=== PATIENT | male | born 1940 | race Caucasian/White ===

== ENCOUNTER 2017-03-25 21:29 | Inpatient (IN) | payer MEDICARE ==
[~2017-03-25] VITALS: Ht 177.8 cm; Wt 86.4 kg
--- NOTE | ~2017-03-25 | HEMODYNAMI ---
PATIENT:IRMA RAMIRES MEDICAL RECORD: [id number] : 44 LOCATION:[id number] ADMISSION DATE: 03/26/17 Generatedon:03/26/201713:36 Patient name: IRMA RAMIRES Patient #: [id number] SSN: [id number] : 1940 Date of study: 03/26/2017 Page: Of Hemodynamic Procedure Report Patient Data Patient Demographics Procedure consent was obtained First Name: IRMA Gender: Male Last Name: KEYLA : 1940 Middle Initial: W Age: 77 year(s) Patient #: [id number] Race: Unknown SSN: [id number] Additional ID: [id number] Contact details Address: [address] [place] [address] [address] State: [place] City: [facility] Zip code: [address] Past Medical History Allergies: No known allergies Admission Admission Data Admission Date: 03/26/2017 Admission Time: 0:05 Arrival Date: 03/26/2017 Arrival Time: 0:00 Admit Source: Other Room #: D.2234 Height (in.): 64.96 BSA: 1.89 (m2) Height (cm.): 165 BMI: 29.99 (kg/m2) Weight (lbs.): 180.01 Weight (kg.): 81.65 Lab Results Lab Result Date: 03/26/2017 Lab Result Time: 0:00 Biochemistry Name Units Result Min Max BUN mg/dl 20 --(----)*- 7 18 CK-MB ng/ml 4.4 --(----)*- 0 3.6 Creatinine mg/dl 0.9 --(-*--)-- 0.6 1.3 Creatinine l 272 --(----)-* 21 215 Kinase Troponin l ng/ml 0.03 --(-*--)-- 0 0.06 CBC Name Units Result Min Max Hemoglobin g/dl 12.8 -*(----)-- 13.5 17.5 Procedure Procedure Types Cath Procedure Diagnostic Procedure [facility] w/Coronaries PCI Procedure Coronary Stent Initial Miscellaneous Procedures Moderate Sedation up to 15 minutes Procedure Description Procedure Date Procedure Date: 03/26/2017 Procedure Start Time: 12:56 Procedure End Time: 13:30 Procedure Staff Name Function Yasir Abraham MD Performing Physician Patience Villa RT Scrub Carla Ace RN Nurse Christy Fisher RT Monitor Procedure Data Cath Procedure Fluoroscopy Diagnostic fluoroscopy Total fluoroscopy Time: time: 12.8 min 12.8 min Diagnostic fluoroscopy Total fluoroscopy dose: dose: 1258 mGy 1258 mGy Contrast Material Contrast Material Type Amount (ml) Isovue 300 163 Entry Location Entry Primary Successful Side Size Upsize Upsize Entry Closure Eng ccessful Closure Location (Fr) 1 (Fr) 2 (Fr) Remarks Device Remarks Radial Right 6 Fr Mechanical TR band artery Short Compression Femoral Right 7 Fr Exoseal artery Short Estimated blood loss: 10 ml Diagnostic catheters Device Type Used For End Catheter Placement Terumo 5Fr Campton 110cm Procedure catheter Procedure Complications No complications Procedure Medications Medication Administration Route Dosage Oxygen NC 2 l/min Lidocaine 2% added to field 20 Heparin Flush Bag added to field 2 bags (1000units/500ml NS) 0.9% NaCl I.V. 100 ml/hr Zofran I.V. 4 mg Versed I.V. 1 mg Fentanyl I.V. 50 mcg Versed I.V. 1 mg Fentanyl I.V. 50 mcg Radial Cocktail I.A. 1 syringe (Verapomil 2mg/Nitro 400mcg/Heparin 1500units) Heparin Bolus I.V. 4000 units Integrilin (Bolus I.V. 7.9 ml 2mg/ml) Fentanyl I.V. 50 mcg Versed I.V. 1 mg Fentanyl I.V. 50 mcg Versed I.V. 1 mg Plavix P.O. 600 mg Hemodynamics Rest BSA: 1.89 (m2) HGB: 12.8 (g/dl) O2 Consumption: Estimated: 220.91 (ml/min) O2 Co nsumption indexed: Estimated:116.88 (ml/min/m) Heart Rate: 75 (bpm) Snapshots Pre Cath Intra NCS Post Cath Vital Signs Time Heart Resp SPO2 etCO2 GW1rsds NIBP (mmHg) Rhythm Pain Sedation Rate (ipm) (%) (mmHg) (mmHg) Status Level (bpm) 12:37:39 75 17 96 0 0 157/77(126) NSR 0 (11) 10(A) , No pain 12:41:59 70 16 99 0 0 150/71(113) NSR 0 (11) 10(A) , No pain 12:46:24 66 14 96 0 0 133/62(99) NSR 0 (11) 10(A) , No pain 12:50:44 64 18 96 0 0 133/58(95) NSR 0 (11) 10(A) , No pain 12:55:00 63 19 97 0 0 126/62(92) NSR 0 (11) 9(A) , No pain 12:59:24 66 17 98 0 0 98/47(71) NSR 0 (11) 9(A) , No pain 13:03:34 62 18 95 0 0 116/53(82) NSR 0 (11) 9(A) , No pain 13:07:50 66 16 97 0 0 117/61(89) NSR 0 (11) 9(A) , No pain 13:12:08 60 16 94 0 0 120/58(91) NSR 0 (11) 9(A) , No pain 13:16:22 61 14 94 0 0 115/58(86) NSR 0 (11) 9(A) , No pain 13:20:38 59 16 95 0 0 119/55(95) NSR 0 (11) 9(A) , No pain 13:24:54 58 18 94 0 0 112/58(94) NSR 0 (11) 9(A) , No pain 13:29:08 62 18 95 0 0 124/60(93) NSR 0 (11) 10(A) , No pain Medications Time Medication Route Dose Verified Delivered Reason Note s Effectiveness by by 12:37:15 Oxygen NC 2 l/min Yasir Aguirre used for Leigh Ace director business integration 12:37:22 Lidocaine 2% added 20ml Yasir Cooley for local to vial Leigh Abraham MD anesthetic field 12:37:35 Heparin Flush added 2 bags Yasir Cooley used for Bag to Leigh Abraham MD procedure (1000units/500ml field NS) 12:37:44 0.9% NaCl I.V. 100 Yasir Buffie Per physician ml/hr Leigh Ace RN 12:37:48 Zofran I.V. 4 mg Yasirradha Cohnie Per physician pt h as n\v Leigh Ace RN side effect with sedation mediciations 12:48:48 Versed I.V. 1 mg Yasir Buffie for sedation Leigh Ace RN 12:48:54 Fentanyl I.V. 50 mcg Yasir Aguirre for sedation Leigh Ace RN 12:55:34 Versed I.V. 1 mg Yasir Buffie for sedation Leigh Ace RN 12:55:42 Fentanyl I.V. 50 mcg Yasirradha Cohnie for sedation Leigh Ace RN 12:58:04 Radial Cocktail I.A. 1 Yasir Yasir for (Verapomil syringe Leigh Abraham MD vasodilation 2mg/Nitro 400mcg/Heparin 1500units) 13:02:45 Heparin Bolus I.V. 4000 Yasir Aguirre for veri fied units Leigh Ace RN anticoagulation with dr abraham 13:04:46 Integrilin I.V. 7.9 ml Yasir Cohnie for wast ed 2.7 (Bolus 2mg/ml) Leigh Ace RN antiplatelet ml of vial therapy 13:07:06 Fentanyl I.V. 50 mcg Yasir Cohnie for sedation Leigh Ace RN 13:07:42 Versed I.V. 1 mg Yasir Buffie for sedation Leigh Ace RN 13:17:29 Versed I.V. 1 mg Yasir Cohnie for sedation Leigh Ace RN 13:17:35 Fentanyl I.V. 50 mcg Yasir Cohnie for sedation Leigh Ace RN 13:29:15 Plavix P.O. 600 mg Yasir Aguirre for Leigh Ace RN antiplatelet therapy Procedure Log Time Note 12:25:01 Lab Result : BUN 20 mg/dl 12:25:01 Lab Result : Troponin l 0.03 ng/ml 12:25:01 Lab Result : Hemoglobin 12.8 g/dl 12:25:01 Lab Result : Creatinine Kinase 272 l 12:25:01 Lab Result : Creatinine 0.9 mg/dl 12:25:01 Lab Result : CK-MB 4.4 ng/ml 12:25:26 Diagnostic Cath Status : Elective 12:29:27 Carla Ace RN sent for patient. Start room use. 12:29:34 Time tracking: Regular hours 12:29:40 Plan of Care:Hemodynamics will remain stable., Cardiac rhythm will remain stable., Comfort level will be maintained., Respiratory function will remain adequate., Patient/ family verbilizes understanding of procedure., Procedure tolerated without complication., Recovers from procedure without complications.. 12:30:14 Patient received from Med II to CCL 1 Alert and oriented. Tansferred to table in Supine position. 12:30:18 Warm blankets applied, and sandra hugger turned on for patient comfort. 12:30:19 Correct patient and procedure confirmed by team. 12:30:21 Signed procedure consent form obtained from patient. 12:31:07 Patient Weight : 180.01 kg 12:31:18 Patient Height : 64.96 cm 12:31:28 Arrival Date: 03/26/2017 12:00:00 AM 12:31:30 Admit Source: Other 12:31:54 H&P Date Dictated: 03/25/2017 Within 30 days and on chart.. 12:31:58 Pre-procedure instructions explained to patient. 12:32:00 Family in waiting room. 12:32:09 Patient NPO since Midnight. 12:32:26 Patient allergic to No known allergies 12:32:34 Was the patient premedicated? No 12:32:41 Is patient on blood thinner?No 12:32:43 Patient diabetic? No. 12:32:50 Previous problem with sedation/anesthesia? Yes n/v 12:32:54 Snore? Yes 12:32:56 Sleep apnea? No 12:33:03 Dentures? No ? 12:33:19 Patient pain scale 0/10 ?. 12:33:35 IV patent on arrival in left antecubital with 0.9% NaCl at KVO. 12:33:53 Lab results completed and on chart. 12:34:35 Right Radial & Right Groin area was prepped with chlora-prep and draped in sterile fashion 12:34:37 Alarms reviewed by R. N. 12:34:37 Sharps counted by scrub and verified by R.N. 12:35:15 ECG and BP/O2 sat monitors applied to patient. 12:36:26 Baseline sample Acquired. 12:36:26 Vital chart was started 12:36:34 Rhythm: sinus rhythm 12:36:36 Full Disclosure recording started 12:37:15 Oxygen 2 l/min NC was administered by Carla Ace RN; used for procedure; 12:37:22 Lidocaine 2% 20ml vial added to field was administered by Yasir Abraham MD; for local anesthetic; 12:37:35 Heparin Flush Bag (1000units/500ml NS) 2 bags added to field was administered by Yasir Abraham MD; used for procedure; 12:37:44 0.9% NaCl 100 ml/hr I.V. was administered by Carla Ace RN; Per physician; 12:37:48 Zofran 4 mg I.V. was administered by Carla Ace RN; Per physician; pt has n\v side effect with sedation mediciations 12:47:11 Physician arrived 12:47:12 --------ALL STOP TIME OUT------ 12:47:12 Final Timeout: patient, procedure, and site verified with staff and physician. All members of the team are in agreement. 12:47:15 Right Radial & Right Groin site verified by team. 12:47:20 Sedation plan: IV Moderate Sedation Versed, Fentanyl 12:48:48 Versed 1 mg I.V. was administered by Carla Ace RN; for sedation; 12:48:54 Fentanyl 50 mcg I.V. was administered by Carla Ace RN; for sedation; 12:54:15 Zero performed for pressure channel P1 12:55:34 Versed 1 mg I.V. was administered by Carla Ace RN; for sedation; 12:55:42 Fentanyl 50 mcg I.V. was administered by Carla Ace RN; for sedation; 12:56:09 Procedure started. 12:56:16 Local anesthetic to right radial artery with Lidocaine 2% by Yasir Abraham MD.INITIAL ACCESS ONLY 12:57:16 A 6 Fr Short sheath was inserted into the Right Radial artery 12:57:22 J wire advanced. 12:58:04 Radial Cocktail (Verapomil 2mg/Nitro 400mcg/Heparin 1500units) 1 syringe I.A. was administered by Yasir Abraham MD; for vasodilation; 12:58:25 A Terumo 5Fr Campton 110cm catheter was advanced over the wire and used for Procedure. 12:58:30 LV angiography performed. 12:59:22 EF : 55 % 12:59:28 LCA angiography performed. 13:00:30 RCA angiography performed. 13:00:50 Catheter removed. 13:02:45 Heparin Bolus 4000 units I.V. was administered by Carla Ace RN; for anticoagulation; verified with dr abraham 13:03:43 [employer] BasixCompak Inflation Kit opened to sterile field. 13:03:44 Sim Fielder XT J 300cm 0.014 guide wire opened to sterile field. 13:03:45 Medtronic Launcher 6Fr AR 2.0 guide catheter opened to sterile field. 13:03:58 ACC PCI Site: mRCA has 99% stenosis. 13:04:05 6 Fr AR2 guide catheter was inserted over the wire 13:04:13 Jaspal wire advanced. 13:04:46 Integrilin (Bolus 2mg/ml) 7.9 ml I.V. was administered by Carla Ace RN; for antiplatelet therapy; wasted 2.7 ml of vial 13:07:02 Medtronic Launcher 7Fr AR 2.0 SH guide catheter opened to sterile field. 13:07:03 Terumo 7Fr Massillon Sheath opened to sterile field. 13:07:06 Fentanyl 50 mcg I.V. was administered by Carla Aec RN; for sedation; 13:07:16 Local anesthetic to right femoral artery with Lidocaine 2% by Yasir Abraham MD.ADDITIONAL ACCESS 13:07:26 A 7 Fr Short sheath was inserted into the Right Femoral artery 13:07:42 Versed 1 mg I.V. was administered by Carla Ace RN; for sedation; 13:08:09 7 Fr AR 2SH guide catheter was inserted over the wire 13:08:24 er wire advanced. 13:09:58 Wire advanced across lesion. 13:11:45 Inflation number: 1 A Euphora 1.5 x 20 Balloon was prepped and advanced across the Mid RCA, then inflated to 21 NORMA for 0:10 (min:sec). 13:11:56 Inflation number: 2 The Euphora 1.5 x 20 Balloon was reinflated across the Mid RCA, to 21 NORMA for 0:00 (min:sec). 13:12:57 Balloon removed over the wire. 13:14:09 Inflation number: 3 A Euphora 2.0 x 15 Balloon was prepped and advanced across the Mid RCA, then inflated to 21 NORMA for 0:19 (min:sec). 13:14:19 Balloon removed over the wire. 13:17:29 Versed 1 mg I.V. was administered by Carla Ace RN; for sedation; 13:17:35 Fentanyl 50 mcg I.V. was administered by Carla Ace RN; for sedation; 13:18:21 Inflation number: 4 A Euphora 3.0 x 20 Balloon was prepped and advanced across the Mid RCA, then inflated to 15 NORMA for 0:07 (min:sec). 13:18:33 Inflation number: 5 The Euphora 3.0 x 20 Balloon was reinflated across the Mid RCA, to 13 NORMA for 0:10 (min:sec). 13:18:57 Inflation number: 6 The Euphora 3.0 x 20 Balloon was reinflated across the Mid RCA, to 15 NORMA for 0:09 (min:sec). 13:19:06 Balloon removed over the wire. 13:20:49 Inflation Number: 7 A Biofreedom 3.0 x 24 stent (No Cost Implant) was prepped and advanced across the Mid RCA. The stent was deployed at 15 NORMA for 0:09 (min:sec). 13:21:12 Stent catheter was removed intact over wire. 13:23:44 Inflation Number: 1 A Biofreedom 3.5 x 28 stent (No Cost Implant) was prepped and advanced across the Prox RCA. The stent was deployed at 13 NORMA for 0:10 (min:sec). 13:24:28 Inflation number: 8 The stent balloon was then re-inflated across the Mid RCA to 13 NORMA for 0:10 (min:sec). 13:24:41 Stent catheter was removed intact over wire. 13:24:43 Wire removed. 13:24:43 Guide catheter removed. 13:25:18 Cordis 7Fr Exoseal opened to sterile field. 13:25:20 Terumo TR Band Standard opened to sterile field. 13:25:32 Tegaderm 4 x 4 opened to sterile field. 13:26:45 Sheath removed intact; hemostasis achieved with Exoseal to the Right Femoral artery. 13:27:05 Sheath removed intact; hemostasis achieved with Mechanical Compression to the Right Radial artery. 13:27:08 Procedure ended.(Katie Out) 13:27:29 Fluoroscopy time 12.80 minutes. 13::44 Fluoroscopy dose: 1258 mGy 13::44 Flurop Dose total: 1258 13::08 Contrast amount:Isovue 300 163ml. 13:28:10 Sharps counted by scrub and verified by R.N. 13:28:19 Post-op/insertion site Right Femoral artery dressed using a 4 x 4 and Tegaderm. 13:28:23 Post right femoral artery:stable 13:28:26 Post Procedure Pulses reassessed and unchanged 13:28:29 Post-procedure physical assessment completed. ASA score P 2 - A patient with mild systemic disease as per Yasir Abraham MD. 13:28:34 Post procedure rhythm: sinus rhythm 13:28:37 Estimated blood loss: 10 ml 13:28:41 Post procedure instruction explained to patient.Patient verbalizes understanding. 13:28:59 Procedure type changed to Cath procedure, Diagnostic procedure, LHC, LHC w/Coronaries, PCI procedure, Coronary Stent Initial, Miscellaneous Procedures, Moderate Sedation up to 15 minutes 13:29:02 Procedure and supply charges have been captured, reviewed, submitted and are correct. 13:29:15 Plavix 600 mg P.O. was administered by Carla Ace RN; for antiplatelet therapy; 13:29:49 Procedure Complication : No complications 13:29:53 Vital chart was stopped 13:29:54 See physician's report for complete and final results. 13:29:59 TR band inflated with 10cc of air. 13:30:12 Report given to [facility]. 13:30:17 Patient transfered to [facility] with Bed. 13:30:20 Procedure ended. 13:30:20 Full Disclosure recording stopped 13:30:24 End room use (Document Last) 13:31:07 ACC-PCI Only Patient was given prescriptions, or instructed by Yasir Abraham MD to start/continue the following medications upon discharge: Plavix Intervention Summary Intervention Notes Time ActionType Lesion and Equipment Action# Pressure Duration Attributes Used 13:11:45 Inflate Mid RCA Euphora 1 21 00:10 balloon 1.5 x 20 Balloon 13:11:56 Reinflate Mid RCA Euphora 2 21 00:00 balloon 1.5 x 20 Balloon 13:14:09 Inflate Mid RCA Euphora 3 21 00:19 balloon 2.0 x 15 Balloon 13:18:21 Inflate Mid RCA Euphora 4 15 00:07 balloon 3.0 x 20 Balloon 13:18:33 Reinflate Mid RCA Euphora 5 13 00:10 balloon 3.0 x 20 Balloon 13:18:57 Reinflate Mid RCA Euphora 6 15 00:09 balloon 3.0 x 20 Balloon 13:20:49 Place stent Mid RCA Biofreedom 7 15 00:09 3.0 x 24 stent (No Cost Implant) 13:23:44 Place stent Prox RCA Biofreedom 1 13 00:10 3.5 x 28 stent (No Cost Implant) 13:24:28 Reinflate Mid RCA Biofreedom 8 13 00:10 stent 3.5 x 28 balloon stent (No Cost Implant) Device Usage Item Name Manufacture Quantity Catalog Hospital Part Current Minimal Lot# / Number Charge Number Stock Stock Serial# Code Terumo 5Fr Terumo 1 [id number] [id number] 148511 5 Campton 110cm catheter Merit Merit 1 [id number] 368659 804891 254042 15 BasixCompak Medical Inflation Kit Sim Sim 1 [id number] 957648 609229 645695 5 Fielder XT Vascular J 300cm 0.014 guide wire Medtronic Medtronic 1 [id number] 614109 38536 712919 1 Launcher 6Fr AR 2.0 guide catheter Medtronic Medtronic 1 [id number] 324758 216152 757370 0 Launcher 7Fr AR 2.0 SH guide catheter Terumo 7Fr Terumo 1 [id number] 179063 155986 050308 5 Massillon Sheath Euphora 1.5 Medtronic 1 [id number] 858632 256299 679477 5 [id number] x 20 Balloon Euphora 2.0 Medtronic 1 [id number] 666609 394001 246782 5 [id number] x 15 Balloon Euphora 3.0 Medtronic 1 [id number] 626711 332992 348719 5 [id number] x 20 Balloon Biofreedom Biosensors 1 [facility]2-3024 339535 665096 5 [id number] 3.0 x 24 [place] SA stent (No Cost Implant) Biofreedom Biosensors 1 [facility]2-7274 848314 133120 5 [id number] 3.5 x 28 [place] SA stent (No Cost Implant) Cordis 7Fr Cardinal 1 [id number] 146187 672856 083666 5 TimeCast Terumo TR Terumo 1 [id number] 129094 665929 560033 40 Band Standard Tegaderm 4 3M 1 [id number] 748436 274278 391274 5 x 4 Signature Audit [place] Stage Time Signature Unsigned Intra-Procedure 03/26/2017 Christy Fisher 1:36:38 PM RT(R) Signatures Monitor : Christy Fisher Signature : RT Date : Time : [address] [id number]
--- NOTE | ~2017-03-25 | HEMODYNAMI ---
PATIENT:IRMA RAMIRES MEDICAL RECORD: [id number] : 44 LOCATION:[facility] [id number] ADMISSION DATE: 03/26/17 Generatedon:03/27/20179:58 Patient name: IRMA RAMIRES Patient #: [id number] SSN: [id number] : 1940 Date of study: 03/27/2017 Page: Of Hemodynamic Procedure Report Patient Data Patient Demographics Procedure consent was obtained First Name: IRMA Gender: Male Last Name: KEYLA : 1940 Middle Initial: W Age: 77 year(s) Patient #: [id number] Race: SSN: [id number] Additional ID: [id number] Contact details Address: [address] [place] [address] [address] State: [place] City: [facility] Zip code: [address] Past Medical History Allergies: No known allergies Admission Admission Data Admission Date: 03/26/2017 Admission Time: 0:05 Arrival Date: 03/26/2017 Arrival Time: 0:05 Admit Source: Other Insurance Payor: Medicare Room #: D.2114 Height (in.): 64.96 BSA: 1.89 (m2) Height (cm.): 165 BMI: 29.99 (kg/m2) Weight (lbs.): 180.01 Weight (kg.): 81.65 Lab Results Lab Result Date: 03/27/2017 Lab Result Time: 4:54 Biochemistry Name Units Result Min Max BUN mg/dl 16 --(---*)-- 7 18 Creatinine mg/dl 1.1 --(--*-)-- 0.6 1.3 CBC Name Units Result Min Max Hematocrit % 36.4 *-(----)-- 42 54 Hemoglobin g/dl 12.4 *-(----)-- 13.5 17.5 Procedure Procedure Types Cath Procedure PCI Procedure Coronary Stent Initial Miscellaneous Procedures Moderate Sedation up to 15 minutes Procedure Description Procedure Date Procedure Date: 03/27/2017 Procedure Start Time: 9:36 Procedure End Time: 9:57 Procedure Staff Name Function Yasir Abraham MD Performing Physician Patience Villa RT Scrub Carla Ace RN Nurse Federico Coombs RT Monitor Procedure Data Cath Procedure Fluoroscopy Diagnostic fluoroscopy Total fluoroscopy Time: 3.3 time: 3.3 min min Diagnostic fluoroscopy Total fluoroscopy dose: 348 dose: 348 mGy mGy Contrast Material Contrast Material Type Amount (ml) Isovue 300 54 Entry Location Entry Primary Successful Side Size Upsize Upsize Entry Closure Succes sful Closure Location (Fr) 1 (Fr) 2 (Fr) Remarks Device Remarks Femoral Left 6 Fr Exoseal artery Short Estimated blood loss: 10 ml Procedure Complications No complications Procedure Medications Medication Administration Route Dosage Oxygen NC 2 l/min Lidocaine 2% added to field 20 Heparin Flush Bag added to field 2 bags (1000units/500ml NS) 0.9% NaCl I.V. 100 ml/hr Benadryl I.V. 50 mg Zofran I.V. 4 mg Versed I.V. 2 mg Fentanyl I.V. 100 mcg Plavix P.O. 75 mg Versed I.V. 1 mg Fentanyl I.V. 50 mcg Heparin Bolus I.V. 4000 units Versed I.V. 1 mg Fentanyl I.V. 50 mcg Hemodynamics Rest BSA: 1.89 (m2) HGB: 12.4 (g/dl) O2 Consumption: Estimated: 219.29 (ml/min) O2 Co nsumption indexed: Estimated:116.03 (ml/min/m) Heart Rate: 73 (bpm) Snapshots Pre Cath Intra NCS Post Cath Vital Signs Time Heart Resp SPO2 etCO2 RW4xlag NIBP (mmHg) Rhythm Pain Sedation Rate (ipm) (%) (mmHg) (mmHg) Status Level (bpm) 9:12:35 75 20 98 0 0 161/80(129) NSR 0 (11) 10(A) , No pain 9:16:57 70 18 99 0 0 148/69(118) NSR 0 (11) 10(A) , No pain 9:21:15 75 18 96 0 0 125/64(98) NSR 0 (11) 10(A) , No pain 9:25:31 64 17 98 0 0 136/65(101) NSR 0 (11) 10(A) , No pain 9:29:51 63 17 97 0 0 112/62(96) NSR 0 (11) 10(A) , No pain 9:34:03 60 16 97 0 0 126/59(99) NSR 0 (11) 10(A) , No pain 9:38:17 61 18 96 0 0 125/63(93) NSR 0 (11) 9(A) , No pain 9:42:33 65 18 95 0 0 116/65(86) NSR 0 (11) 9(A) , No pain 9:46:43 73 16 99 0 0 118/72(99) NSR 0 (11) 9(A) , No pain 9:50:42 73 17 98 0 0 116/63(89) NSR 0 (11) 10(A) , No pain 9:54:52 99 0 0 No Cuff NSR 0 (11) 10(A) , No pain Medications Time Medication Route Dose Verified Delivered Reason Notes Effectiveness by by 9:09:19 Plavix P.O. 75 mg Yasir Buffie for Leigh Ace RN antiplatelet therapy 9:09:48 Oxygen NC 2 Yasir Buffie used for l/min Leigh Ace RN procedure 9:09:56 Lidocaine 2% added 20ml Yasir Yasir for local to vial Leigh Abraham MD anesthetic field 9:10:02 Heparin Flush added 2 Yasir Yasir used for Bag to bags Leigh Abraham MD procedure (1000units/500ml field NS) 9:10:11 0.9% NaCl I.V. 100 Yasir Buffie Per physician ml/hr Leigh Ace RN 9:10:18 Benadryl I.V. 50 mg Yasir Buffie used for Leigh Ace RN procedure 9:13:39 Zofran I.V. 4 mg Yasir Buffie Per physician Leigh Ace RN 9:34:37 Versed I.V. 2 mg Yasir Buffie for sedation Leigh Ace RN 9:34:44 Fentanyl I.V. 100 Yasir Buffie for sedation mcg Leigh Ace RN 9:38:42 Versed I.V. 1 mg Yasir Buffie for sedation Leigh Ace RN 9:38:46 Fentanyl I.V. 50 Yasir Buffie for sedation mcg Leigh Ace RN 9:39:42 Heparin Bolus I.V. 4000 Yasir Aguirre for verifie d units Leigh Ace RN anticoagulation with dr abraham 9:43:14 Versed I.V. 1 mg Yasir Aguirre for sedation Leigh Ace RN 9:43:18 Fentanyl I.V. 50 Yasir Aguirre for sedation mcg Leigh Ace RN Procedure Log Time Note 8:44:02 Informed consent obtained and on chart 8:44:21 Patient Weight : 180.01 kg 8:44:21 Patient Height : 64.96 cm 8:44:21 Insurance Payor : Medicare 8:45:45 Arrival Date: 03/26/2017 12:05:00 AM 8:46:31 Diagnostic Cath Status : Elective 8:47:52 Carla Ace RN sent for patient. Start room use. 8:47:52 Time tracking: Regular hours 8:47:57 Plan of Care:Hemodynamics will remain stable., Cardiac rhythm will remain stable., Comfort level will be maintained., Respiratory function will remain adequate., Patient/ family verbilizes understanding of procedure., Procedure tolerated without complication., Recovers from procedure without complications.. 8:49:08 Patient received from Med II to CCL 1 Alert and oriented. Tansferred to table in Supine position. 8:49:10 Warm blankets applied, and sandra hugger turned on for patient comfort. 8:49:10 Correct patient and procedure confirmed by team. 8:49:42 ECG and BP/O2 sat monitors applied to patient. 8:53:47 H&P Date Dictated: 03/26/2017 Within 30 days and on chart.. 8:53:48 Pre-procedure instructions explained to patient. 8:53:49 Pre-op teaching completed and patient verbalized understanding. 8:54:11 Family in waiting room. 8:54:12 Patient NPO since Midnight. 8:54:18 Patient allergic to No known allergies 8:54:20 Is the patient allergic to Iodine/contrast media? No. 8:54:21 Is patient on blood thinner?Yes 8:54:23 ACC The patient was administered the following blood thiners within the last 24 hours: ACCPlavix 8:54:25 Patient diabetic? No. 8:54:47 Previous problem with sedation/anesthesia? No ? 8:54:51 Snore? Yes 8:54:54 Sleep apnea? No 8:54:59 Deviated septum? No 8:55:00 Opens mouth fully? Yes 8:55:01 Sticks out tongue? Yes 8:55:08 Airway obstruction? No ? 8:55:10 Dentures? Yes Out 8:55:16 Patient pain scale 0/10 ?. 8:55:35 IV started by Carla Ace RN inright hand with a 22 gauge IV catheter with 0.9% NaCl at KVO. ::53 Lab Result : BUN 16 mg/dl : Lab Result : Creatinine 1.1 mg/dl 9:: Lab Result : Hemoglobin 12.4 g/dl 9:: Lab Result : Hematocrit 36.4 % 9::19 Plavix 75 mg P.O. was administered by Carla Ace RN; for antiplatelet therapy; 9:09:48 Oxygen 2 l/min NC was administered by Carla Ace RN; used for procedure; 9::56 Lidocaine 2% 20ml vial added to field was administered by Yasir Abraham MD; for local anesthetic; 9:10:02 Heparin Flush Bag (1000units/500ml NS) 2 bags added to field was administered by Yasir Abraham MD; used for procedure; 9:10:11 0.9% NaCl 100 ml/hr I.V. was administered by Carla Ace RN; Per physician; 9:10:18 Benadryl 50 mg I.V. was administered by Carla Ace RN; used for procedure; 9:10:51 Lab results completed and on chart. 9:10:54 Left groin area was prepped with chlora-prep and draped in sterile fashion 9:10:57 Alarms reviewed by R. N. 9:10:57 Sharps counted by scrub and verified by R.N. 9:11:06 Use device set Femoral PCI 9:11:07 Tegaderm 4 x 4 opened to sterile field. 9:11:08 Acist Manifold opened to sterile field. 9:11:08 Merit BasixCompak Inflation Kit opened to sterile field. 9:11:09 Acist Syringe opened to sterile field. 9:11:10 Acist Hand Control opened to sterile field. 9:11:13 Bag Decanter opened to sterile field. 9:11:14 Medline Cath Pack opened to sterile field. 9:11:14 Terumo 6Fr Tiverton Sheath opened to sterile field. 9:11:15 St Tito 260cm J .035 wire opened to sterile field. 9:11:22 Vital chart was started 9:11:23 Baseline sample Acquired. 9:11:30 Rhythm: sinus rhythm 9:11:37 Full Disclosure recording started 9:13:39 Zofran 4 mg I.V. was administered by Carla Ace RN; Per physician; 9:13:56 Sim Whisper J 300cm 0.014 guide wire opened to sterile field. 9:17:53 Zero performed for pressure channel P1 9:17:56 Zero performed for pressure channel P1 9:33:31 Physician arrived 9:33:32 --------ALL STOP TIME OUT------ 9:33:32 Final Timeout: patient, procedure, and site verified with staff and physician. All members of the team are in agreement. 9:33:34 Left groin site verified by team. 9:33:37 Physical assessment completed. ASA score P 2 - A patient with mild systemic disease as per Yasir Abraham MD. 9:33:40 Sedation plan: IV Moderate Sedation Versed, Fentanyl 9:34:37 Versed 2 mg I.V. was administered by Carla Ace RN; for sedation; 9:34:44 Fentanyl 100 mcg I.V. was administered by Carla Ace RN; for sedation; 9:36:16 Procedure started. 9:36:20 Local anesthetic to left femerol artery with Lidocaine 2% by Yasir Abraham MD.INITIAL ACCESS ONLY 9:36:37 A 6 Fr Short sheath was inserted into the Left Femoral artery 9:36:45 Cordis 6FR XBLAD 3.5 guide catheter opened to sterile field. 9:38:42 Versed 1 mg I.V. was administered by Carla Ace RN; for sedation; 9:38:46 Fentanyl 50 mcg I.V. was administered by Carla Ace RN; for sedation; 9:39:18 6 Fr xblad 3.5 guide catheter was inserted over the wire 9:39:42 Heparin Bolus 4000 units I.V. was administered by Carla Ace RN; for anticoagulation; verified with dr abraham 9:39:50 LCA angiography performed. 9:40:38 whisper wire advanced. 9:41:19 Wire advanced across lesion. 9:42:23 Inflation number: 1 A Kirkwood Sci Pinal 3.0 X 9 balloon was prepped and advanced across the Prox LAD, then inflated to 13 NORMA for 0:10 (min:sec). 9:42:34 Inflation number: 2 The Kirkwood Sci Pinal 3.0 X 9 balloon was reinflated across the Prox LAD, to 13 NORMA for 0:10 (min:sec). 9:43:14 Versed 1 mg I.V. was administered by Carla Ace RN; for sedation; 9:43:18 Fentanyl 50 mcg I.V. was administered by Carla Ace RN; for sedation; 9:43:21 Balloon removed over the wire. 9:45:14 Inflation Number: 3 A Biofreedom 3.0 x 11 stent (No Cost Implant) was prepped and advanced across the Prox LAD. The stent was deployed at 13 NORMA for 0:10 (min:sec). 9:45:42 Stent catheter was removed intact over wire. 9:45:43 Wire removed. 9:45:44 Guide catheter removed. 9:45:49 Cordis 6Fr Exoseal opened to sterile field. 9:45:59 Sheath removed intact; hemostasis achieved with Exoseal to the Left Femoral artery. 9:46:10 Procedure ended.(Physican Out) 9:51:50 Fluoroscopy time 03.30 minutes. 9:51:54 Fluoroscopy dose: 348 mGy 9:51:54 Flurop Dose total: 348 9:52:00 Contrast amount:Isovue 300 54ml. 9:52:01 Sharps counted by scrub and verified by R.N. 9:52:02 Insertion/operative site no bleeding no hematoma. 9:52:05 Post-op/insertion site Left Femoral artery dressed using a 4 x 4 and Tegaderm. 9:52:10 Post left femerol artery:stable, soft, clean and dry 9:52:16 Post Procedure Pulses reassessed and unchanged 9:52:22 Post-procedure physical assessment completed. ASA score P 2 - A patient with mild systemic disease as per Yasir Abraham MD. 9:52:24 Post procedure rhythm: unchanged. 9:52:26 Estimated blood loss: 10 ml 9:52:27 Post procedure instruction explained to patient.Patient verbalizes understanding. 9:52:27 Patient needs reinforcement of post procedure teaching. 9:52:47 Procedure type changed to Cath procedure, PCI procedure, Coronary Stent Initial, Miscellaneous Procedures, Moderate Sedation up to 15 minutes 9:52:58 St Tito Femstop Arch Gold opened to sterile field. 9:56:25 Femstop placed over the left femerol artery at 140 mmHg. Hemostasis achieved. 9:57:06 Procedure and supply charges have been captured, reviewed, submitted and are correct. 9:57:11 Procedure Complication : No complications 9:57:13 Vital chart was stopped 9:57:13 See physician's report for complete and final results. 9:57:15 Report given to PCU. 9:57:29 Patient transfered to PCU with Stretcher. 9:57:33 Procedure ended. 9:57:33 Full Disclosure recording stopped 9:57:48 End room use (Document Last) Intervention Summary Intervention Notes Time ActionType Lesion and Equipment Action# Pressure Duration Attributes Used 9:42:23 Inflate Prox LAD Kirkwood Sci 1 13 00:10 balloon Pinal 3.0 X 9 balloon 9:42:34 Reinflate Prox LAD Kirkwood Sci 2 13 00:10 balloon Pinal 3.0 X 9 balloon 9:45:14 [address] stent Prox LAD Biofreedom 3 13 00:10 3.0 x 11 stent (No Cost Implant) Device Usage Item Name Manufacture Quantity Catalog Number Hospital Part Current Mini mal Lot# / Charge Number Stock Stock Serial# Code Tegaderm 4 3M 1 [id number] 481935 5 x 4 Acist Acist 1 21120 139434 812036 313267 5 Manifold Medical Systems Inc Merit Merit 1 AV0141 117422 879067 021505 15 BasixCompak Medical Inflation Kit Acist Acist 1 86715 513268 039874 061815 20 Syringe Medical Systems Inc Acist Hand Acist 1 21348 440462 737049 558038 5 Control Medical Systems Inc Bag Microtek 1 2001S 426322 96977 748813 5 DecKingmaker Medical Inc. Medline Cardinal 1 [id number] 973014 54425 969936 5 Cath Pack Health Terumo 6Fr Terumo 1 RSR080 215045 487264 226465 [address] St Tito 1 978539 753481 897556 421537 30 260cm J .035 wire Sim Sim 1 [id number] 032544 433845 287504 5 Whisper J Vascular 300cm 0.014 guide wire Cordis 6FR Cardinal 1 [id number] 861893 573185 620061 10 XBLAD 3.5 Health guide catheter Kirkwood Sci Kirkwood 1 [id number] 003820 320120 130820 1 [id number] Mocana 3.0 X 9 balloon Biofreedom Biosensors 1 [facility]2-3011 336637 145033 5 [id number] 3.0 x 11 Europe SA stent (No Cost Implant) Cordis 6Fr Cardinal 1 EX600 346852 725563 340357 [address] Tito St Tito 1 K18326 942435 462830 924859 5 Femstop Arch Gold Signature Audit [place] Stage Time Signature Unsigned Intra-Procedure 03/27/2017 Federico Coombs 9:58:09 AM RT(R) Signatures Monitor : Federico Coombs RT Signature : Date : Time : [place] [id number] [place] [id number]
[~2017-03-25 21:29] MED LIST: AMBIEN10 MG PO; BAYER CHEWABLE81 MG PO; CRESTOR10 MG PO; LISINOPRIL-HCTZ1 T11 PO; NATURAL LAXATIVE; NORVASC5 MG PO; PERDIEM15 MG PO; SYNTHROID150 MCG PO
[2017-03-25 22:24] LABS: BASOPHILS 0.2 % (0-2); HEMATOCRIT 38.9 % (42.0-54.0); HEMOGLOBIN 13.5 g/dL (13.5-17.5); IMMATURE GRANULOCYTES 0.5 % (0-5); LYMPHOCYTES 19.2 % (15-50); MCH 30.8 pg (26.0-34.0); MCHC 34.7 g/dL (31.0-37.0); MCV 88.6 fL (80.0-100.0); MEAN PLATELET VOLUME 9.3 fL (7.4-10.4); MONOCYTES 11.1 % (2-11); PLATELET COUNT 209 10x3/uL (130-400); RBC 4.39 10x6/uL (4.20-6.10); RDW 12.7 % (11.5-14.5); WBC 9.6 10x3/uL (4.8-10.8)
[2017-03-25 22:37] LABS: ALBUMIN 3.8 g/dL (3.4-5.0); ALKALINE PHOSPHATASE 34 U/L (46-116); ALT (SGPT) 25 U/L (10-68); CALC OSMOLALITY 281 mosm/kg (275-300); CALCIUM 9.4 mg/dL (8.5-10.1); CARBON DIOXIDE 30.6 mmol/L (21.0-32.0); CHLORIDE - SERUM 101 mmol/L (98-107); CREATININE - SERUM 0.9 mg/dL (0.6-1.3); GLUCOSE 108 mg/dL (74-106); POTASSIUM - SERUM 3.9 mmol/L (3.5-5.1); SODIUM 139 mmol/L (136-145); UREA NITROGEN 20 mg/dL (7-18); eGFR NON AFRICAN AMERICAN 87 mL/min (90-120)
[2017-03-25 22:49] LABS: CHOL - HDL RATIO 3.6 ratio (2.3-4.9); CHOLESTEROL, TOTAL 141 mg/dL (0-200); CKMB 4.4 U/L (0.0-3.6); CREATINE KINASE 272 UL (21-232); HDL CHOLESTEROL 39 mg/dL (32-96); LDL CHOLESTEROL 82 mg/dL (0-100); LDL-HDL RATIO 2.1 ratio (1.5-3.5); TRIGLYCERIDE 102 mg/dL (30-200)
[2017-03-26 01:31] VITALS: BP 115/55; Ht 177.8 cm; Wt 86.4 kg
[2017-03-26] MEDS ORDERED: FLOMAX0.4 MG PO (01:54)
[2017-03-26] MEDS ORDERED: FENOFIBRATE160 MG PO (01:55)
[2017-03-26] MEDS ORDERED: MULTIPLE VITAMI1 TA1 PO (01:56)
[2017-03-26] MEDS ORDERED: CELEXA10 MG PO (01:56)
[2017-03-26] MEDS ORDERED: CO Q-10100 MG PO (01:57)
[2017-03-26 04:00] VITALS: BP 114/57
[2017-03-26 05:21] LABS: CKMB 3.9 U/L (0.0-3.6); CREATINE KINASE 238 UL (21-232); TROPONIN-I 0.041 ng/mL (0.000-0.060)
[2017-03-26 07:59] VITALS: BP 101/54
[2017-03-26 09:07] LABS: BASOPHILS 0.4 % (0-2); EOSINOPHILS 2.8 % (0-7); HEMATOCRIT 37.9 % (42.0-54.0); HEMOGLOBIN 12.8 g/dL (13.5-17.5); IMMATURE GRANULOCYTES 0.5 % (0-5); LYMPHOCYTES 27.2 % (15-50); MCH 30.5 pg (26.0-34.0); MCHC 33.8 g/dL (31.0-37.0); MCV 90.5 fL (80.0-100.0); MEAN PLATELET VOLUME 9.7 fL (7.4-10.4); NEUTROPHILS 59.1 % (40-80); PLATELET COUNT 209 10x3/uL (130-400); RBC 4.19 10x6/uL (4.20-6.10); RDW 12.8 % (11.5-14.5); WBC 8.3 10x3/uL (4.8-10.8)
[2017-03-26 11:26] LABS: CKMB 3.4 U/L (0.0-3.6); CREATINE KINASE 230 UL (21-232); TROPONIN-I 0.028 ng/mL (0.000-0.060)
[2017-03-26 11:46] VITALS: BP 157/68
[2017-03-26 15:34] VITALS: BP 112/61
--- NOTE | 2017-03-26 17:49 | HP ---
PATIENT: IRMA MARIA MEDICAL RECORD: [id number] ACCOUNT: [id number] LOCATION:[address] : 42 ADMISSION DATE: 03/26/17 HISTORY AND PHYSICAL EXAMINATION HISTORY OF PRESENT ILLNESS: Mr. Maria is a 77-year-old white male, patient of ____, presents to the Emergency Room with [id number] chest pain, shortness of breath, heart pounding, elevated blood pressure, upper back pain yesterday while at scientology. His pressure was in 190s. He has had some anxiety. 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 Abraham, who follows him for "leaky valve". He has no history of any blockages, stent placement or heart cath. He is feeling better now. Pressures are improved. He has a mild elevation of some of his cardiac enzymes. He is in observation for further evaluation. PAST MEDICAL HISTORY: Significant for hypertension, hyperlipidemia, "leaky valve," hypothyroidism, hyperlipidemia, anxiety, depression, BPH. PAST SURGICAL HISTORY: Include hernia repair. ALLERGIES: None known. HOME MEDICATIONS: Include Flomax 0.4 daily, fenofibrate 160 mg daily, citalopram 10 mg a day, multivitamin, aspirin 81 mg, levothyroxine 150 mcg a day, lisinopril/HCTZ 20/12.5 one daily, Ambien 10 mg a day, Norvasc 5 mg a day, Crestor 10 mg a day. FAMILY HISTORY: Significant for cardiovascular disease. SOCIAL HISTORY: The patient is retired. He has been a smoker in the past. He does not drink. REVIEW OF SYSTEMS: He has been under some stress. He has had some anxiety and some fatigue. He has had chest pain and palpitations as above. No edema. No nausea, no vomiting. Some shortness of breath. PHYSICAL EXAMINATION: HEAD: Normocephalic. NECK: Soft and supple. HEART: Regular. LUNGS: Clear. ABDOMEN: Soft. EXTREMITIES: Lower extremities reveal no edema. Distal pulses are palpable. NEUROLOGIC: Without any gross focal deficits. Mood and affect are normal at this time. IMPRESSION: Chest pain, elevated cardiac enzymes, hyperlipidemia, hypothyroidism, anxiety/depression, "leaky valve," benign prostatic hypertrophy. PLAN: Observation, cycle enzymes, cardiology consult. See orders for plan. TRANSINT:[id number] Voice Confirmation ID: [id number] DOCUMENT ID: [id number] HISTORY AND PHYSICAL [id number] IRMA MARIA MATTHEW DO at 1749 CC: [id number] DICTATION DATE: 03/26/17 1018 CONSTRUCTION PROJECT ENGINEER: 03/26/17 1100 ADM IN [facility] [address] [place] [address]
[2017-03-26 20:00] VITALS: BP 128/58
[2017-03-27 00:59] VITALS: BP 133/63
[2017-03-27 04:16] VITALS: BP 115/57
[2017-03-27 05:20] LABS: BASOPHILS 0.2 % (0-2); EOSINOPHILS 3.5 % (0-7); HEMATOCRIT 36.4 % (42.0-54.0); HEMOGLOBIN 12.4 g/dL (13.5-17.5); IMMATURE GRANULOCYTES 0.5 % (0-5); LYMPHOCYTES 21.6 % (15-50); MCH 30.7 pg (26.0-34.0); MCHC 34.1 g/dL (31.0-37.0); MCV 90.1 fL (80.0-100.0); MEAN PLATELET VOLUME 9.4 fL (7.4-10.4); NEUTROPHILS 62.2 % (40-80); PLATELET COUNT 175 10x3/uL (130-400); RBC 4.04 10x6/uL (4.20-6.10); RDW 12.9 % (11.5-14.5); WBC 8.6 10x3/uL (4.8-10.8)
[2017-03-27 05:52] LABS: ALBUMIN 3.3 g/dL (3.4-5.0); ANION GAP 6.7 mmol/L (8-16); BILIRUBIN - TOTAL 0.27 mg/dL (0.2-1.3); CARBON DIOXIDE 32.3 mmol/L (21.0-32.0); CREATININE - SERUM 1.1 mg/dL (0.6-1.3); PROTEIN - SERUM 6.2 g/dL (6.4-8.2)
[2017-03-27 08:02] VITALS: BP 122/64
[2017-03-27 11:43] VITALS: BP 125/58
[2017-03-27] MEDS ORDERED: PLAVIX75 MG PO (12:15)
[2017-03-27] MEDS ORDERED: ATIVAN0.5 MG PO ×2 (14:36→14:38)
[2017-03-27 16:35] VITALS: BP 127/58
--- NOTE | 2017-03-28 07:56 | CN ---
PATIENT NAME:IRMA MARIA MEDICAL RECORD: [id number] : 44 LOCATION:. D.2114 ADMIT DATE: 03/26/17 ACCOUNT: [id number] CONSULTING PHYSICIAN: YADIRA CORTES MD REFERRING PHYSICIAN: ROXANE SQUIRES DO DATE OF CONSULTATION: 03/26/2017 DIAGNOSES: 1. Non-Q-wave myocardial infarction. 2. Coronary artery disease. 3. Hypertension. 4. Hyperlipidemia. 5. Mitral regurgitation. HISTORY OF PRESENT ILLNESS: Mr. Maria is a gentleman known to our practice, who is only followed for mitral regurgitation, never had a history of ischemic heart disease, who began having chest pain yesterday while in adventism, presented to the Emergency Room, has a mildly elevated troponin, has been pain-free since. His EKG is with nonspecific ST-T abnormalities. PHYSICAL EXAMINATION: GENERAL APPEARANCE: Well-nourished, well-developed, appears stated age. Level of distress, comfortable. PSYCHIATRIC: Mental status, alert, normal affect. Orientation, oriented to time, place and person. EYES: Lids and conjunctiva, noninjected. No discharge, no pallor. ENT: Lips, teeth, gums, normal dentition. Oropharynx, no cyanosis, no pallor. NECK: Carotid arteries, bilateral normal upstroke, no bruits, no thrills. JUGULAR VEINS: No jugular venous pressure or distention. CERVICAL LYMPH NODES: Nontender, nonenlarged. THYROID: Not enlarged. Nontender. No nodules. LUNGS: Respiratory effort, unlabored. CHEST: Normal curvature. No thoracic deformity. No chest wall tenderness. Percussion, resonant. Auscultation, clear. No wheezes, no rales, no rhonchi. CARDIOVASCULAR: Precordial exam, nondisplaced. No heaves or pericardial thrills. Rate and rhythm, regular. Heart sounds, normal S1, normal S2. No S3, no gallop, no rub. Systolic murmur, not heard. Diastolic murmur, not heard. EXTREMITIES: No cyanosis, no edema. Peripheral pulses, full and equal in all extremities, except as noted. No bruits appreciated. ABDOMEN: Soft, nondistended. Normal aorta. No bruit. Nontender. No masses. Liver, nontender, no hepatomegaly. Spleen, nontender, no splenomegaly. MUSCULOSKELETAL: No joint tenderness. No joint swelling. No erythema. NEUROLOGICAL: Normal gait, normal strength, normal tone. SKIN: Warm and dry. REVIEW OF SYSTEMS: The patient reports easy bruising but reports no swollen glands. The patient reports no fever, no night sweats, no significant weight gain, no significant weight loss. No significant exercise tolerance. The patient reports no dry eyes, no irritation, no vision change. Patient reports no difficulty hearing and no ear pain. Patient reports no frequent nose bleeds or nose and sinus problems. Patient reports on arm pain on exertion. No shortness of breath while lying down. No history of heart murmur. Patient reports no cough, no wheezing or coughing up blood. Patient reports no abdominal pain, no vomiting. Normal appetite. No diarrhea and not vomiting blood. No nausea and no constipation. Patient reports no incontinence. No CONSULT REPORT [id number] IRMA MARIA difficulty urinating. No hematuria. No increased frequency. Patient reports no muscle aches. No weakness, no arthralgias, no back pain. No swelling of the extremities. Patient reports no abnormal mole, no jaundice, no rashes. Reports no loss of consciousness. No weakness and no numbness. No seizures, dizziness, or headaches. The patient reports no depression, no sleep disturbance, feeling safe in a relationship and no alcohol abuse. Patient reports on fatigue. Reports no runny nose or sinus pressure. No itching, no hives, and no frequent sneezing. OVERALL IMPRESSION: Chest pain, elevated troponin compatible with non-Q-wave myocardial infarction. We will proceed with coronary angiography. Further care depends upon the findings of the angiography. TRANSINT:[id number] Voice Confirmation ID: [id number] DOCUMENT ID: [id number] YADIRA CORTES MD at 0756 CC: [id number] DICTATION DATE: 03/26/17 1059 SOUND ENGINEER: 03/26/17 1152 DIS IN 03/27/17 [place] [id number] [place] [id number]
--- NOTE | 2017-03-28 07:57 | OP ---
PATIENT NAME: IRMA RAMIRES MEDICAL RECORD: [id number] :44 LOCATION:D.M2 D.2114 ADMISSION DATE:03/26/17 SURGEON: YADIRA CORTES MD DATE OF OPERATION: 03/26/2017 PROCEDURES: 1. PTCA stent RCA. 2. Left heart catheterization. 3. Selective coronary angiography. 4. Left ventriculogram. INDICATION: Non-Q-wave myocardial infarction. PROCEDURE: After informed consent was obtained and after detailed explanation of risks, benefits as well as alternative therapies, the patient elected to proceed with angiogram and angioplasty. The right femoral area was prepped and draped in normal sterile fashion. Right femoral artery was cannulated via modified Seldinger technique with placement of 5-Occitan sheath. All catheters exchanged through this sheath. FINDINGS: The left ventriculogram was performed in standard 30-degree NAJERA view, reveals preserved cardiac wall motion, ejection fraction is 60%. SELECTIVE CORONARY ANGIOGRAPHY: 1. Left main showed no significant angiographic disease. 2. Left anterior descending has a 90% stenosis in the proximal vessel. 3. Left circumflex shows moderate irregularities, but no flow-limiting stenosis. 4. Right coronary has a long area of 70% to 75% stenosis in the proximal vessel followed by a chronic total occlusion in the mid vessel. The distal vessel fills via bridging collaterals. There appears to be no just channel through this. Most likely this is a chronic total occlusion. PTCA STENT OF THE RCA where traverse the chronic total occlusion with a Fielder wire linea were 1.52, 2.0 and 3.0 balloon. Stented this lesion was approximately 20 mm in length of 3-0 vessel but 100% initial occlusion 0 flow through the main channel. We then placed a 3.0 x 24 mm bile Sedalia stent. Result was 0% residual stenosis with sikh of MARKY 3 flow. PTCA stent of the proximal RCA. This lesion was a 25mm lesion at a 3.5 vessel with MARKY 3 flow before and after the intervention and this was intervened with a 3.5 x 28 mm bile Sedalia stent. Result was 0% residual throughout. No angiographic evidence of dissection or thrombus with sikh of MARKY-3 flow. IMPRESSION: Successful percutaneous transluminal coronary angioplasty stent of the right coronary artery going from 100% initial stenosis to 0% residual. PLAN: PTCA stent of the LAD in the near future. TRANSINT:[id number] Voice Confirmation ID: [id number] DOCUMENT ID: [id number] OPERATIVE REPORT [id number] IRMA RAMIRES JEFFREY MD at 0757 CC: [id number] DICTATION DATE: 03/26/171655 BRUSHER TENDER: 03/26/17 2342 DIS IN 03/27/17 [place] [id number] [place] [id number]
--- NOTE | 2017-03-28 07:57 | DS ---
PATIENT:IRMA MARIA :44 MEDICAL RECORD: [id number] DISCHARGE SUMMARY ADMISSION DATE: 03/26/17 DISCHARGE DATE: 03/27/17 DISCHARGE DIAGNOSES: 1. PTCA stent right coronary artery and left anterior descending this admission. 2. Unstable angina. 3. Coronary artery disease. HOSPITAL COURSE: Mr. Maria presents with unstable anginal symptomatology, found to have critical disease of the RCA and LAD, underwent successful PTCA stent of above territories, had an uneventful postop course. He was discharged home with the addition of aspirin and Plavix times 1 month to his medical regimen. We will follow up with [facility] in 1 month. TRANSINT:[id number] Voice Confirmation ID: [id number] DOCUMENT ID: [id number] YADIRA CORTES MD at 0757 CC: [id number] DICTATION DATE: 03/27/17 0949 PILLOW CLEANER: 03/28/17 0017 DIS IN 03/27/17 [id number] [place] [address]
--- NOTE | 2017-03-28 07:57 | OP ---
PATIENT NAME: IRMA RAMIRES MEDICAL RECORD: [id number] :44 LOCATION:D.M2 D.2114 ADMISSION DATE:03/26/17 SURGEON: YADIRA CORTES MD DATE OF OPERATION: 03/27/2017 PROCEDURES: 1. PTCA stent LAD. 2. Selective coronary angiography. INDICATIONS: Angina and coronary artery disease. PROCEDURE IN DETAIL: After informed consent was obtained and after detailed explanation of risks, benefits as well as alternative therapies, the patient elected to proceed with angiogram and angioplasty. The left femoral area was prepped and draped in normal sterile fashion. Left femoral artery was cannulated via modified Seldinger technique with placement of 6-Maltese sheath. All catheters exchanged through this sheath. FINDINGS: The left anterior descending has a 90% stenosis proximally. This was addressed with a 3.0 x 11 mm BioFreedom stent. Lesion was approximately 8 mm in length in a 3.0 vessel. There is MARKY 3 flow before and after the intervention. After the intervention, percentage of stenosis was 0%. OVERALL IMPRESSION: Successful percutaneous transluminal coronary angioplasty stent of the left anterior descending going from 90% initial stenosis to 0% residual stenosis. TRANSINT:[id number] Voice Confirmation ID: [id number] DOCUMENT ID: [id number] YADIRA CORTES MD at 0757 CC: [id number] DICTATION DATE: 03/27/17 0953 HIGH PRESSURE OPERATOR: 03/27/17 1217 DIS IN 03/27/17 [facility] [address] [place] [address]
--- NOTE | 2017-03-28 17:02 | DS ---
PATIENT:IRMA RAMIRES :44 MEDICAL RECORD: [id number] DISCHARGE SUMMARY ADMISSION DATE: 03/26/17 DISCHARGE DATE: 03/27/17 ADMITTING DIAGNOSES: 1. Chest pain. 2. Elevated cardiac enzymes. 3. Hyperlipidemia. 4. Hypothyroid disease. 5. Anxiety, depression. 6. "Leaky valve". 7. Benign prostatic hypertrophy. HOSPITAL COURSE: This is a gentleman of Dr. Chester'fabio, admitted with diagnoses as outlined above. Details are well-outlined in the history of the present illness, H&P. All events, lab procedures and diagnostic testing are well-documented in the records. The patient was admitted, appropriate home medicines continued. Cardiac enzymes cycled. Cardiology consult obtained with Dr. Abraham. The patient was taken to the dental lab technician where he had stenting to the RCA and then, kept overnight, taken back and had stenting to the LAD. Overall, he has improved. He is stable for dismissal home. Please refer to med rec. He was given a new script for Plavix. He is already on a statin and a triglyceride medicine, please refer to MAR. He will be dismissed home. PCP is Dr. Chester. House calls to see. DISCHARGE DIAGNOSES: Elevated troponin, chest pain, chest tightness or pressure, shortness of breath, coronary artery disease status post stenting, hyperlipidemia, hypertension, hypothyroid disease, neuropathy, hernia, anxiety, leaky heart valve, benign prostatic hypertrophy, insomnia and former tobacco use. Greater than 30 minutes was spent on this discharge. TRANSINT:[id number] Voice Confirmation ID: [id number] DOCUMENT ID: [id number] Dictated By: ANTWON CELESTIN RN I have interviewed/examined the above patient and agree with these documented findings. ROXANE SQUIRES DO at 1702 CC: [id number] DICTATION DATE: 03/27/17 1530 NURSERY WORKER: 03/28/17 0313 DIS IN 03/27/17 [facility] [address] [place] [address]
[2017-03-28 18:28] LABS: CKMB 3.8 U/L (0.0-3.6); CREATINE KINASE 171 UL (21-232)
[2017-03-28 18:37] LABS: TROPONIN-I 0.252 ng/mL (0.000-0.060)
== END 2017-03-27 16:45 | disposition home health service (06) | DRG 247 ==
LOC: D.ER 21:29 → D.M2 03-26 00:05 → D.MS 03-26 00:05 → D.M2 03-26 13:42
PROVIDERS: Family Medicine; ADMIT Family Medicine
DX: I21.4 Non-ST elevation (NSTEMI) myocardial infarction (principal); F41.9 Anxiety disorder, unspecified; I10 Essential (primary) hypertension; E78.5 Hyperlipidemia, unspecified; E03.9 Hypothyroidism, unspecified; I25.10 Atherosclerotic heart disease of native coronary artery without angina pectoris; I34.0 Nonrheumatic mitral (valve) insufficiency; Z00.6 Encounter for examination for normal comparison and control in clinical research program; N40.0 Benign prostatic hyperplasia without lower urinary tract symptoms

== ENCOUNTER → 2017-07-27 10:09 | Outpatient (CLI) | payer MEDICARE ==
[2017-03-26 01:31] VITALS: BMI 27.3
[~2017-07-27 10:09] MED LIST changes: +ATIVAN0.5 MG PO; +CELEXA10 MG PO; +CO Q-10100 MG PO; +FENOFIBRATE160 MG PO; +FLOMAX0.4 MG PO; +MULTIPLE VITAMI1 TA1 PO; +PLAVIX75 MG PO
== END | disposition home or self-care (01) ==
LOC: D.RAD 10:09
DX: K59.00 Constipation, unspecified (principal); R10.9 Unspecified abdominal pain

== ENCOUNTER 2019-03-21 08:00 | Day surgery (SDC) | payer MEDICARE ==
[2019-03-20 14:42] LABS: HEMATOCRIT 35.6 % (42.0-54.0); HEMOGLOBIN 12.2 g/dL (13.5-17.5); MCH 29.5 pg (26.0-34.0); MCHC 34.3 g/dL (31.0-37.0); MEAN PLATELET VOLUME 9.7 fL (7.4-10.4); RBC 4.14 10x6/uL (4.20-6.10); RDW 13.5 % (11.5-14.5); WBC 6.9 10x3/uL (4.8-10.8)
[2019-03-20 15:01] LABS: CALC OSMOLALITY 279 mosm/kg (275-300); CALCIUM 9.5 mg/dL (8.5-10.1); CARBON DIOXIDE 29.9 mmol/L (21.0-32.0); CHLORIDE - SERUM 101 mmol/L (98-107); GLUCOSE 132 mg/dL (74-106); POTASSIUM - SERUM 3.5 mmol/L (3.5-5.1); SODIUM 138 mmol/L (136-145); UREA NITROGEN 19 mg/dL (7-18); eGFR NON AFRICAN AMERICAN 77 mL/min (90-120)
[~2019-03-21] VITALS: Ht 172.7 cm; Wt 92.5 kg
[~2019-03-21 08:00] MED LIST changes: +FUROSEMIDE20 MG PO; +LIPITOR40 MG PO; +PROTONIX40 MG PO; +TEMAZEPAM30 MG PO; +TOPROL XL100 MG PO
[2019-03-21 08:20] VITALS: BP 166/67; Ht 172.7 cm; Wt 92.5 kg
--- NOTE | 2019-03-21 15:38 | NUR ---
SCOPE PATCH BEHIND RT EAR ON ADMIT
--- NOTE | 2019-03-21 16:45 | NUR ---
REC'D FROM . FRIEND/FAMILY AT BEDSIDE. STERI STRIPS INTACT WITH DRAINAGE NOTED AT [facility]. C/O PAIN 6/10 AND NAUSEA. ASKING IF HOMEHEALTH IS GOING TO SEE HIM. EXPLAINED THERE IS NOT AN ORDER FOR HOMEHEALTH AND USUALLY LAP SONNY DOES NOT DEBILATATE A PERSON TO NEED HOMEHEALTH. VERBALIZED UNDERSTANDING.
--- NOTE | 2019-03-21 16:57 | NUR ---
NORCO 5MG ADMINISTERED PO FOR PAIN AND ZOFRAN 4MG IV ADMINSITERED FOR C/O NAUSEA. ICE CHIPS BROUGHT TO PATIENT.
--- NOTE | 2019-03-21 17:35 | NUR ---
GRAPE JUICE BROUGHT TO PATIENT. PATIENT RATES PAIN AN 8/10 NOW. ASKS IF THE WAY HE FEELS IS NORMAL. RELATES IS WEAK AND DIZZY WHEN GOT UP TO AMBULATE TO THE BATHROOM.
--- NOTE | 2019-03-21 17:40 | NUR ---
JOSE MARIA DENISECooper SERVED TO PATIENT.
--- NOTE | 2019-03-21 17:45 | NUR ---
AMBULATED TO THE BATHROOM WITH ASSIST OF WALKER AND STAND ASSIST OF NURSES. UNABLE TO VOID. BACK TO BED.
--- NOTE | 2019-03-21 18:00 | NUR ---
ATTEMPTING TO EAT FL DIET. FAMILY/FRIEND AT BEDSIDE.
--- NOTE | 2019-03-21 19:50 | NUR ---
PATIENT AMBULATES TO BATHROOM AND VOIDS IN TOILET. LEFT HAND PIV DC'D WITH TIP INTACT. DISCHARGE INSTRUCTIONS REVIEWED WITH PATIENT AND DAUGHTER. PATIENT DRESSING IN PERSONAL CLOTHING 2001 DISCHARGED HOME VIA WHEELCHAIR TO PRIVATE VEHICLE WITH DAUGHTER
--- NOTE | 2019-03-26 11:49 | OP ---
PATIENT NAME: IRMA RAMIRES MEDICAL RECORD: [id number] :44 LOCATION:[facility] ADMISSION DATE: SURGEON: JENNIFER BAUGH MD DATE OF OPERATION: 03/21/2019 PREOPERATIVE DIAGNOSIS: Symptomatic gallstones. POSTOPERATIVE DIAGNOSES: 1. Symptomatic gallstones. 2. Hepatomegaly. 3. Dense adhesions around the gallbladder and to the gallbladder. PROCEDURE: 1. Laparoscopic cholecystectomy. 2. Intraoperative cholangiography without immediate surgeon interpretation. 3. A 14-gauge core needle liver biopsy. SURGEON: Jennifer Baugh MD DELIVERER MERCHANDISE: None. BLOOD LOSS: Minimal. ANESTHESIA: General. COMPLICATIONS: None. The risks, possible complications, and alternatives to the procedure were explained to the patient. He elects to proceed. OPERATIVE COURSE: The patient was conveyed to the operating room electively on 03/21/2019. General anesthesia was induced by the anesthesia staff. The abdomen was sterilely prepped and draped. A small skin el was accomplished in the left upper quadrant. A Veress needle was inserted through the skin el into the peritoneal cavity. CO2 insufflation was begun. Once a sufficient pneumoperitoneum had been achieved, a 5-mm trocar was inserted in the right upper quadrant. Under direct internal vision utilizing a television camera, a 12-mm trocar was inserted through an incision at the umbilicus. Another 5-mm trocar was inserted through an incision in the epigastrium. Another 5-mm trocar was inserted through the incision in the right upper quadrant. During insertion of the Veress needle and all trocars, there appeared to have been no injury to the bowels, any intraperitoneal or retroperitoneal structures. Under laparoscopic guidance, I percutaneously accessed the right upper quadrant utilizing a 14-gauge core biopsy device. Cores of the liver were obtained over its convexity. The biopsy sites were made hemostatic with the electrocautery. I then took down some adhesions from the gallbladder. These were taken down bluntly. I advanced a cholangiogram trocar through one of the trocars. I punctured the fundus of the gallbladder. I aspirated bile. I then injected dye. Under real time fluoroscopy cholangiographic images were obtained. These were sent to the radiologist for interpretation. I then aspirated bile and removed the cholangiogram trocar. OPERATIVE REPORT [id number] IRMA RAMIRES The gallbladder was grasped and retracted cephalad. The infundibulum was grasped and retracted laterally. Additional adhesions were taken down bluntly. One cystic artery was identified. It was clipped multiply and divided between clips. I then dissected down to the dense scarring around the cystic duct. I could identify the infundibulum and the cystic duct. This area was still pretty enlarge and a standard clip was not going to reach across this area. So I changed out the epigastric 5-mm trocar for a 12-mm trocar. I advanced a non-disposable clip special day class teacher with a large clip and I clipped across the junction of the infundibulum and cystic duct. I transected the gallbladder distal to this. The gallbladder was then excised from its bed and the liver with electrocautery. The gallbladder was placed within a bag retrieval device and was withdrawn through the umbilical fascial defect. The 12-mm trocar was replaced and the abdomen reinsufflated. I irrigated and aspirated in the right upper quadrant. There was no bleeding even at low pressure of 8. The 12-mm trocar site in the left upper quadrant was closed in the following manner. Utilizing the Cornelius-Gissel suture closure device and a 0 Vicryl suture, the muscle was closed. At the umbilicus, the fascia was closed with interrupted #0 Vicryls with the suture passer. All trocars were removed and the abdomen desufflated. The skin at the umbilicus was closed with interrupted 4-0 Vicryl Rapide sutures. Other skin incisions were closed with interrupted intracuticular 3-0 Vicryls. Benzoin and Steri-Strips were applied. The patient was then extubated and conveyed to the post-anesthesia care unit where he was in stable condition. TRANSINT:[id number] Voice Confirmation ID: [id number] DOCUMENT ID: [id number] JENNIFER BAUGH MD at 1149 CC: JOSE LANCE and YADIRA CORTES [id number] DICTATION DATE: 03/21/191838 KNITTER HAND: 03/22/19 0054 [facility] 03/21/19 [facility] [address] [id number]
== END 2019-03-21 20:02 | disposition home or self-care (01) ==
LOC: D.OPS 08:00 → D.PAN 08:45 → D.OPS 08:45 → D.PAN 11:40 → D.OPS 11:40
PROVIDERS: Anesthesiology; ATTEND Surgery
DX: K80.10 Calculus of gallbladder with chronic cholecystitis without obstruction (principal); K82.8 Other specified diseases of gallbladder; K76.0 Fatty (change of) liver, not elsewhere classified; Z01.812 Encounter for preprocedural laboratory examination

== ENCOUNTER 2019-07-30 07:22 | Day surgery (SDC) | payer MEDICARE ==
[~2019-07-30] VITALS: Ht 172.7 cm; Wt 83.5 kg
[2019-07-30 07:59] LABS: HEMATOCRIT 26.9 % (42.0-54.0); HEMOGLOBIN 8.9 g/dL (13.5-17.5); MCH 29.6 pg (26.0-34.0); MCHC 33.1 g/dL (31.0-37.0); MCV 89.4 fL (80.0-100.0); MEAN PLATELET VOLUME 12.7 fL (7.4-10.4); RBC 3.01 10x6/uL (4.20-6.10); RDW 15.7 % (11.5-14.5); WBC 3.8 10x3/uL (4.8-10.8)
[2019-07-30 08:09] LABS: ANION GAP 11.8 mmol/L (8-16); CARBON DIOXIDE 32.4 mmol/L (21.0-32.0); CREATININE - SERUM 3.8 mg/dL (0.6-1.3); POTASSIUM - SERUM 3.2 mmol/L (3.5-5.1)
[2019-07-30 08:21] LABS: CALCIUM 6.6 mg/dL (8.5-10.1)
--- NOTE | 2019-07-30 09:37 | NUR ---
0915-NOTIFIED ADENIKE IN SURGERY OF CRITICAL CALCIUM OF 6.6 AT 0916 PAGED RENAL.AWAITING FOR PT/PTT TO RESULT BEFORE PAGING RENAL.0-
[2019-07-30 09:39] LABS: APTT 30.1 SECONDS (22.8-39.4); INR 1.28 (0.85-1.17); PROTIME 15.5 SECONDS (11.6-15.0)
--- NOTE | 2019-07-30 09:45 | NUR ---
0944-SPOKE WITH EZRA PERAZA APRN WITH RENAL REGARDING ABNORMAL LABS. NEW ORDERS REC'D TO ADMINISTER 1GRAM OF CALCIUM GLUCONATE IVP AND POTASSIUM 40MEQ IVP. TO NOTIFY WITH ABNORMAL H&H AND PLATETS FOR FURTHER ORDERS.
[2019-07-30 11:04] VITALS: BP 132/53; Ht 172.7 cm; Wt 83.5 kg
--- NOTE | 2019-07-30 17:14 | NUR ---
PT BACK TO ROOM NAUSEATED. MEDICATED BY GENE IN PACU. IV TO HEMASTAT AND PERIPHERAL TO LEFT ARM. AV FISTULA TO RIGHT ARM WITH GOOD THRILL AND BRUIT. WIGGLES FINGERS WELL.
--- NOTE | 2019-07-30 19:19 | NUR ---
1800 COLD COMPRESS TO NECK AND HEAD.
--- NOTE | 2019-07-30 19:39 | NUR ---
1939 PT NOT VOMITING AND BACK FROM GETTING RX FILLED. NO CHANGE IN STATUS OF RIGHT ARM. DEINIES PAIN.
--- NOTE | 2019-07-30 20:22 | NUR ---
1999 PT IV REMOVED LEFT HAND. DRESSING APPLIED AND PRESSURE HELD. ASSISTED WITH GETTING DRESSED AND TO CAR IN W/C NO NAUSEA AT THIS TIME
--- NOTE | 2019-08-13 15:10 | OP ---
PATIENT NAME: IRMA RAMIRES MEDICAL RECORD: [id number] :44 LOCATION:[facility] ADMISSION DATE: SURGEON: ROCAEL BAUGH MD DATE OF OPERATION: 07/30/2019 PREOPERATIVE DIAGNOSIS: End-stage renal disease without chronic access for hemodialysis. POSTOPERATIVE DIAGNOSES: End-stage renal disease without chronic access for hemodialysis. PROCEDURE: Placement of right forearm looped AV graft fistula. SURGEON: Rocael Baugh MD FACILITY MANAGER: None. BLOOD LOSS: Please see the anesthesia sheet. COMPLICATIONS: None. The risks, possible complications, and alternatives to the procedure were explained to the patient. He elects to proceed. OPERATIVE COURSE: The patient was conveyed to the operating room electively on 07/30/2019. General anesthesia was induced by the anesthesia staff. The right upper extremity was abducted at 90 degrees to the patient's trunk. The right upper extremity was sterilely prepped and draped. I supinated the right wrist. I examined the right upper extremity with the hand-held ultrasound. An axial incision was accomplished over the radial artery. I dissected down to the proximal radial artery and found it be not suitable for a 6 mm graft. A transverse incision was them accomplished in the cubital fossa. I dissected down to the brachial artery and then also down to a vein, likely the basilic vein. These were encircled with vessel loops. I tunneled a 6-mm PTFE graft from the proximal incision through a counter incision, which was a transverse incision on the volar aspect of the distal right forearm. I went back to the main incision. I first fashioned the arterial to graft anastomosis. Control was obtained with vessel loops. Intravenous heparin was given. An axial incision was accomplished over the brachial artery. I punched out some ovals in the brachial artery with an aortic punch. A side-to-end artery to graft anastomosis was then fashioned with a running 6-0 Prolene suture. I then flushed out through the graft. The inflow was very good. I then bevelled the venous end of the graft. A longitudinal venotomy was accomplished. An end-to-side graft to venous anastomosis was then fashioned with a running 6-0 Prolene suture. I then released control of the graft. There was an excellent thrill within the graft. Excellent Doppler signal in the outflow vein. A topical hemostatic agent was added to the wound for additional hemostasis. The subdermis at all sites was closed with interrupted 3-0 Vicryl sutures. The skin was approximated with interrupted intracuticular 3-0 Vicryls. Benzoin and OPERATIVE REPORT [id number] IRMA RAMIRES Steri-Strips were applied. The patient was then extubated and conveyed to post-anesthesia care unit where he was in stable condition. TRANSINT:[id number] Voice Confirmation ID: [id number] DOCUMENT ID: [id number] 08/13/2019 Edited for paper feeder error, dmm. ROCAEL BAUGH MD at 1510 CC: [id number] DICTATION DATE: 08/12/191939 MENTAL HEALTH AIDE: 08/13/19 0427 [facility] 07/30/19 [facility] [address] [place] [address]
== END 2019-07-30 20:23 | disposition home or self-care (01) ==
LOC: D.OPS 07:22
PROVIDERS: Anesthesiology; ATTEND Surgery
DX: N18.6 End stage renal disease (principal)

== ENCOUNTER 2019-09-12 07:45 | Day surgery (SDC) | payer MEDICARE ==
[~2019-09-12] VITALS: Ht 172.7 cm; Wt 80.2 kg
[2019-09-12 07:57] LABS: HEMATOCRIT 32.1 % (42.0-54.0); HEMOGLOBIN 10.1 g/dL (13.5-17.5); MCH 31.5 pg (26.0-34.0); MCHC 31.5 g/dL (31.0-37.0); MEAN PLATELET VOLUME 11.8 fL (7.4-10.4); RBC 3.21 10x6/uL (4.20-6.10); RDW 15.9 % (11.5-14.5); WBC 3.4 10x3/uL (4.8-10.8)
[2019-09-12 08:06] LABS: ANION GAP 10.3 mmol/L (8-16); CARBON DIOXIDE 30.4 mmol/L (21.0-32.0); POTASSIUM - SERUM 3.7 mmol/L (3.5-5.1)
[2019-09-12 09:33] VITALS: BMI 26.6
--- NOTE | 2019-09-12 17:59 | NUR ---
CARE TRANSFERRED TO YINA GAINES RN. REPORT GIVEN.
--- NOTE | 2019-09-12 19:45 | NUR ---
PT RECEIVED FROM SURGERY, DRESSING TO RFA-DCI, PROVIDED A SANDWICH AND DRINK, BED IS LOW, SRX2, CALL LIGHT IN REACH, WILL CONTINUE PLAN OF CARE
[2019-09-12 20:00] VITALS: BP 130/44
--- NOTE | 2019-09-12 20:36 | NUR ---
DRESSING CAME OFF RFA-RE DRESSED
[2019-09-12 22:05] VITALS: BP 130/44; BMI 26.8
--- NOTE | 2019-09-12 22:20 | NUR ---
SUPERVISOR ELECTROLYTIC TINNING ASSESSMETN COMPLETED. PT DENIES ANY DISCOMFORT. IV TO LAC AND L WRIST SL. DRESSING TO RFA FISTULA CLEAN, DRY AND INTACT. HEMOSPLIT TO R CHEST NOTED. ALERT AND ORIENTED TO PERSON, PLACE AND TIME. VSS. GIRLFRIEND AT BEDSIDE.
--- NOTE | 2019-09-12 23:02 | NUR ---
COMPLAINS OF FEELING LIKE HE NEEDS TO URINATE, DID BLADDER SCAN SHOW 000ML
[2019-09-13] VITALS: BP 139/42
[2019-09-13 04:00] VITALS: BP 127/46
--- NOTE | 2019-09-13 04:47 | NUR ---
STILL COMPLAIN HE NEEDS TO PEE, SCANNED BLADDER NOW 179ML
--- NOTE | 2019-09-13 07:10 | NUR ---
PATIENT LAYING IN BED ON BACK AWAKE, ALERT AND ORIENTED X 4. PATIENT IS STABLE AND VSS. PATIENT DENIES ANY NEEDS OR PAIN. WILL CONTINUE WITH PLAN OF CARE. SR UP X 2 BED IN LOW POSITION AND CALL LIGHT IN REACH.
[2019-09-13 09:31] VITALS: BP 127/48
[2019-09-13] MEDS ORDERED: FLOMAX0.4 MG PO (11:25)
[2019-09-13 11:43] VITALS: Ht 172.7 cm; Wt 80.2 kg
--- NOTE | 2019-09-13 12:59 | NUR ---
PATIENT IS STABLE AND VSS. PATIENT TO DIALYSIS VIA WC AND ACCOMPANIED BY HOSPITAL PERSONNEL.
--- NOTE | 2019-09-23 10:19 | OP ---
PATIENT NAME: IRMA RAMIRES MEDICAL RECORD: [id number] :44 LOCATION:[facility] ADMISSION DATE: SURGEON: ROCAEL BAUGH MD DATE OF OPERATION: 09/12/2019 PREOPERATIVE DIAGNOSIS: Clotted right forearm looped arteriovenous graft fistula. POSTOPERATIVE DIAGNOSES: 1. 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 2. 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 PROCEDURES: 1. Retrograde sheath placement, 6-Panamanian, right forearm AV graft fistula. 2. Antegrade sheath placement, 6-Panamanian, right forearm AV graft fistula. 3. Nonselective fistulogram. 4. Selective brachial arteriogram. 5. Catheter thrombectomy, right forearm looped AV graft fistula. 6. AngioJet mechanical thrombolysis of right forearm looped AV graft fistula. 7. Pharmacologic thrombolysis of right forearm AV graft fistula. 8. Balloon angioplasties of the arterial anastomosis, 5 mm. 9. Balloon angioplasty of outflow stenosis of the brachial vein, 6 mm. 10. Immediate surgeon interpretation of the fluoroscopic images. SURGEON: Rocael Baugh MD PEARL DIVER: None. BLOOD LOSS: Less than 25 cc. ANESTHESIA: General. COMPLICATIONS: None. The risks, possible complications and alternatives to the procedure were explained to the patient. He elects to proceed. Discussion specifically included, but was not limited to, bleeding requiring emergency reoperation, infection, the possible need for additional dialysis access procedures or the possibility that we would have to abandon the current looped AV graft fistula. No radiologist was present for this procedure. Static fluoroscopic images were obtained, cine images were obtained as well. The surgeon interpretation of these radiographic images is dictated within the body of this operative note. OPERATIVE COURSE: The patient was conveyed to the operating room electively on 09/12/2019. General anesthesia was induced by the anesthesia staff. The right upper extremity was supinated and abducted at 90 degrees to the patient's trunk. The right upper extremity was sterilely prepped and draped. Utilizing a micropuncture technique, I percutaneously accessed one limb of the graft. A J-wire was advanced. Over the J-wire, a short 6-Panamanian dilator sheath was advanced and the sheath was sutured in place times 1. A nonselective fistulogram was performed and this revealed a large thrombus burden within the AV graft without any flow through the AV graft. OPERATIVE REPORT [id number] IRMA RAMIRES I then advanced a Carol catheter. I wanted to prevent embolism into the brachial artery. For this reason, I advanced the Carol catheter all the way into the brachial artery, pulled back several times. There was production of some clot that came out through the sheath. I then advanced an 0.035 Glidewire. This was advanced retrograde up the graft and into the brachial artery. Over the 0.035 Glidewire, an AngioJet mechanical thrombolysis was performed. This was a pretty thorough thrombolysis; however, a subsequent fistulogram revealed some thrombus within the graft as well as what appeared to be a free floating embolic cap at the arterial anastomosis. I advanced my 4-Panamanian Carol again and performed a catheter thrombectomy out into and including the brachial artery. I pulled back on the Carol catheter. The fistulogram revealed a persistent defect. I advanced the 0.035 Glidewire again. A mechanical thrombolysis was performed. This revealed now that we had occlusion of the brachial artery proximal to the arterial anastomosis. A micropuncture technique was used to place a 6-Panamanian sheath in an antegrade fashion on the other limb of the graft. The sheath was sutured in place with a silk suture. Through the sheath, an 0.035 Glidewire was advanced. It was advanced out through the outflow vein, which was likely the brachial vein. AngioJet mechanical thrombolysis was performed under fluoroscopy. A fistulogram performed through this antegrade sheath revealed outflow stenoses. Over the 0.035 Glidewire, I advanced a 6 mm angioplasty balloon. This was a long angioplasty balloon. I performed balloon angioplasties of the brachial vein at 8 atmospheres times 3 minutes. A subsequent fistulogram through the antegrade sheath revealed no significant outflow stenoses. I then returned to the arterial anastomosis and the occlusion of the brachial artery there. I advanced a 0.035 Glidewire through the arterial anastomosis and I then retrograded up in the brachial artery. Over this Glidewire, I advanced a 4-Panamanian angled diagnostic catheter. This was advanced into the brachial artery. The Glidewire was removed. Through the diagnostic catheter, a selective brachial arteriogram was performed. This revealed a thrombus within the brachial artery, which I believe was this embolis that had been the arterial anastomotic cap. I elected for a pharmacologic thrombolysis as the mechanical thrombectomy and the catheter thrombectomy did not seem to be doing a very good job. Through this angled diagnostic catheter, I infused 2 mg of Activase. I allowed the activation work for a while. Another brachial arteriogram revealed a persistent embolic defect within the brachial artery without any flow proximal to the arterial anastomosis. Through the angled diagnostic catheter, I advanced a Glidewire. Over the Glidewire, I balloon angioplastied the arterial anastomosis as well as the brachial artery, both proximal and distal to the anastomosis. A subsequent brachial arteriogram was performed selectively in the brachial artery proximal to the anastomosis. This revealed that there was flow in the brachial artery proximal and distal to the anastomosis and flow up through and out through the AV graft fistula. I could feel a pulse at the right wrist. Pursestring sutures were placed around the sheaths. Endovascular hardware was removed. Sterile dressings were applied. OPERATIVE REPORT [id number] IRMA RAMIRES The patient was then extubated and conveyed to post-anesthesia care unit where he was in stable condition. He had good supination and pronation of the right wrist. Good flexion and extension of the fingers. No paresthesias or numbness involving the right upper extremity. He had a thrill within the AV graft fistula. Also, good hand handkerchief folder at the right hand. Also, a radial artery pulse at the right wrist. TRANSINT:[id number] Voice Confirmation ID: [id number] DOCUMENT ID: [id number] ROCAEL BAUGH MD at 1019 CC: [id number] DICTATION DATE: 09/21/191834 GAMBLING DEALER: 09/22/19 0119 [facility] 09/13/19 [id number] [place] [address]
== END 2019-09-13 17:41 | disposition home or self-care (01) ==
LOC: D.OPS 07:45 → D.M2 07:45 → D.OPS 08:00 → D.M2 17:50 → D.OPS 09-13 17:41
PROVIDERS: Anesthesiology; ATTEND Surgery
DX: T82.858A Stenosis of other vascular prosthetic devices, implants and grafts, initial encounter (principal); Y83.9 Surgical procedure, unspecified as the cause of abnormal reaction of the patient, or of later complication, without mention of misadventure at the time of the procedure; I87.1 Compression of vein